=== PATIENT | female | born 1945 | race Caucasian/White ===

== ENCOUNTER → 2017-12-21 | Outpatient (CLI) | payer MEDICARE ==
--- NOTE | 2017-12-21 16:38 | BD ---
EXAMINATION TYPE: Axial Bone Density DATE OF EXAM: 12/21/2017 COMPARISON: NONE CLINICAL HISTORY: 72-year-old female postmenopausal screening for osteoporosis Height: 5 FT 5 IN Weight: 146 FRAX RISK QUESTIONS: Family History (Parent hip fracture): YES History of Fracture in Adulthood: YES Secondary Osteoporosis: RISK FACTORS HISTORY OF: Family History of Osteoporosis: YES Active: YES Postmenopausal woman: AGE 48 MEDICATIONS: Thyroid Medications: YES Which medication: LEVOTHYROXINE How Long: SINCE AGE 25 Additional Medications: ASPIRIN,LEVOTHYROXINE Additional History: EXAM MEASUREMENTS: Bone mineral densitometry was performed using the [employer] System. Bone mineral density as measured about the Lumbar spine is: ----- L1-L4(G/cm2): 1.220 T Score Values are as follows: ----- L2: -0.2 ----- L3: 0.8 ----- L4: 1.1 ----- L1-L4: 0.3 Bone mineral density has: INCREASED 0.6 % since study of: 2015 Bone mineral density about the R hip (g/cm2): 0.835 Bone mineral density about the L hip (g/cm2): 0.774 T Score values are as follows: -----R Neck: -1.5 -----L Neck: -1.9 -----R Total: -0.4 -----L Total: -0.3 Bone mineral density has: INCREASED 0.5 % since study of: 2015 IMPRESSION: Osteopenia (T Score between -2.5 and -1). There is slightly increased risk of fracture and the patient may be considered for treatment. Re-Screen 2-5 years. NOTE: T-SCORE=SD OF THE YOUNG ADULT MEAN.
== END | disposition home or self-care (01) ==
LOC: RADBDWWP 15:02
PROVIDERS: ATTEND Family Medicine
DX: M85.80 Other specified disorders of bone density and structure, unspecified site (principal)
CPT/HCPCS: 77080

== ENCOUNTER → 2018-02-20 | Outpatient (CLI) | payer MEDICARE ==
[2018-02-20 09:17] LABS: Uric Acid 7.4 mg/dL (3.7-7.4)
[2018-02-20 09:32] LABS: T4, Free (Free Thyroxine) 1.83 ng/dL (0.78-2.19)
== END | disposition home or self-care (01) ==
LOC: LABWHC1 08:26
PROVIDERS: ATTEND Family Medicine
DX: Z00.00 Encounter for general adult medical examination without abnormal findings (principal); E78.5 Hyperlipidemia, unspecified; E03.9 Hypothyroidism, unspecified; R60.9 Edema, unspecified; Z79.899 Other long term (current) drug therapy
CPT/HCPCS: 36415; 80061; 82306; 84439; 84443; 84481; 84550

== ENCOUNTER → 2018-03-10 | Outpatient (CLI) | payer MEDICARE ==
--- NOTE | 2018-03-10 15:48 | XR ---
EXAMINATION TYPE: XR cervical spine comp DATE OF EXAM: 03/10/2018 COMPARISON: None HISTORY: Cervalgia TECHNIQUE: Five-view cervical spine FINDINGS: Mild foraminal narrowing is in the mid to upper cervical spine. Vertebral body alignment is normal. Anterior vertebral body spurring is present C6 mild disc space narrowing is present C5-6. Po sterior spinal lamellar line is intact. Odontoid is limitation with overlying occiput. IMPRESSION: 1. Mild foraminal narrowing within the cervical spine. MRI can be utilized if additional evaluation would be of benefit. 2. Mild degenerative disc changes C5-6
== END | disposition home or self-care (01) ==
LOC: RADXRMAIN 10:45
PROVIDERS: ATTEND Family Medicine
DX: M99.71 Connective tissue and disc stenosis of intervertebral foramina of cervical region (principal); M47.812 Spondylosis without myelopathy or radiculopathy, cervical region
CPT/HCPCS: 72050

== ENCOUNTER 2019-01-04 12:17 | Inpatient (IN) | payer MEDICARE ==
[2019-01-04] MEDS ORDERED: SODIUM CHLORIDE 0.9% 1,000 ML IV STA ×2 (14:01)
--- NOTE | 2019-01-04 14:14 | ED ---
Neuro HPI - General Source: patient, RN notes reviewed, old records reviewed Mode of arrival: wheelchair Limitations: no limitations - History of Present Illness Is the patient presenting with stroke symptoms?: Yes Last Known Well Date: 01/04/19 Last Known Well Time: 08:30 <Grecia Fowler - Last Filed: 01/04/19 16:31> <Jigar Jaimes - Last Filed: 01/04/19 16:44> - General Chief Complaint: Neuro Symptoms/Deficit Stated Complaint: facial swelling/numbness-sent by Dr. Martino Seen by Provider: 01/04/19 13:52 - History of Present Illness Initial Comments: Patient is a 73-year-old female who presents emergency Department today with left-sided facial droop, left-sided facial numbness and tingling, also complains of left eye visual disturbance. She reports she's had history of TIAs in the past. She reports she is on a daily aspirin. She did take 2 aspirin today she stated she had mild headache. Patient states that she's had some nausea, no significant vomiting. (Grecia Fowler) - Related Data Home Medications: Home Medications Medication Instructions Recorded Confirmed Aspirin EC [Ecotrin] 650 mg PO DAILY PRN 05/08/16 01/04/19 Levothyroxine Sodium [Synthroid] 88 mcg PO DAILY 01/04/19 01/04/19 Allergies/Adverse Reactions: Allergies Allergy/AdvReac Type Severity Reaction Status Date / Time ampicillin Allergy Swelling Verified 01/04/19 13:13 cephalexin monohydrate Allergy Rash/Hives Verified 01/04/19 13:13 [From Keflex] ciprofloxacin [From Cipro] Allergy Swelling Verified 01/04/19 13:13 Review of Systems ROS Other: All systems not noted in ROS Statement are negative. <Grecia Fowler - Last Filed: 01/04/19 16:31> ROS Other: All systems not noted in ROS Statement are negative. <Jigar Jaimes - Last Filed: 01/04/19 16:44> ROS Statement: Those systems with pertinent positive or pertinent negative responses have been documented in the HPI. General Exam Limitations: no limitations General appearance: alert, in no apparent distress Head exam: Present: atraumatic, normocephalic, normal inspection Eye exam: Present: normal appearance ENT exam: Present: normal exam, mucous membranes moist Neck exam: Present: normal inspection, other (left facial droop, sparing forehead). Absent: tenderness, meningismus, lymphadenopathy Respiratory exam: Present: normal lung sounds bilaterally. Absent: respiratory distress, wheezes, rales, rhonchi, stridor Cardiovascular Exam: Present: regular rate, normal rhythm, normal heart sounds. Absent: systolic murmur, diastolic murmur, rubs, gallop, clicks GI/Abdominal exam: Present: soft, normal bowel sounds. Absent: distended, tenderness, guarding, rebound, rigid Extremities exam: Present: normal inspection, full ROM, normal capillary refill. Absent: tenderness, pedal edema, joint swelling, calf tenderness Back exam: Present: normal inspection Neurological exam: Present: alert, oriented X3 Expanded Patient oriented to: Present: person, place, time Speech: Present: fluid speech Cranial nerves: Facial Sensation: Abnormal Left ( reports diminished sensation over the left side of her face.), Facial Palsy with Forehead Movement: Abnormal Left Cerebellar function: Finger to Nose: Normal Upper motor neuron: Pronator Drift: Normal Sensory exam: Upper Extremity Light Touch: Abnormal Left, Lower Extremity Light Touch: Abnormal Left Motor strength exam: RUE: 5, LUE: 5, RLE: 5, LLE: 5 Eye Response: (4) open spontaneously Motor Response: (6) obeys commands Verbal Response: (5) oriented Ethel Total: 15 Psychiatric exam: Present: normal affect, normal mood Skin exam: Present: warm <Grecia Fowler - Last Filed: 01/04/19 16:31> - General Exam Comments Initial Comments: 73-year-old female. Alert and oriented 3. (Grecia Fowler) Stroke [facility] - Lab Data Result diagrams: 01/04/19 13:36 01/04/19 13:36 - NIH Stroke Scale 1a. Level of Consciousness: (0) alert 1b. LOC Questions: (1) answers 1 question correctly 1c. LOC Commands: (0) performs tasks correctly 2. Best Gaze: (0) normal 3. Visual: (1) partial hemianopia 4. Facial Palsy: (2) partial paralysis 5a. Motor Arm Left: (0) no drift 5b. Motor Arm Right: (0) no drift 6a. Motor Leg Left: (0) no drift 6b. Motor Leg Right: (0) no drift 7. Limb Ataxia: (0) absent 8. Sensory: (1) mild/moderate sensory loss 9. Best Language: (0) no aphasia 10. Dysarthria: (0) normal 11. Extinction/Inattention: (0) no abnormality - Thrombolytic Inclusion/Exclusion Thrombolytic Exclusion Criteria: Symptom Onset > 3 Hours - Radiology Data Radiology results: report reviewed - EKG Data -: EKG Interpreted by Ia EKG shows normal: sinus rhythm Rate: normal <Grecia Fowler - Last Filed: 01/04/19 16:31> - Lab Data Result diagrams: 01/04/19 13:36 01/04/19 13:36 <Jigar Jaimes - Last Filed: 01/04/19 16:44> - Lab Data Lab Results 01/04/19 01/04/19 01/04/19 Range/Units 13:36 13:36 13:36 WBC 5.5 (3.8-10.6) k/uL RBC 4.65 (3.80-5.40) m/uL Hgb 13.9 (11.4-16.0) gm/dL Hct 41.9 (34.0-46.0) % MCV 90.1 (80.0-100.0) fL MCH 29.8 (25.0-35.0) pg MCHC 33.1 (31.0-37.0) g/dL RDW 13.2 (11.5-15.5) % Plt Count 264 (150-450) k/uL Neutrophils % 61 % Lymphocytes % 28 % Monocytes % 7 % Eosinophils % 2 % Basophils % 0 % Neutrophils # 3.4 (1.3-7.7) k/uL Lymphocytes # 1.5 (1.0-4.8) k/uL Monocytes # 0.4 (0-1.0) k/uL Eosinophils # 0.1 (0-0.7) k/uL Basophils # 0.0 (0-0.2) k/uL PT 9.8 (9.0-12.0) sec INR 0.9 (<1.2) APTT 24.9 (22.0-30.0) sec Sodium 141 (137-145) mmol/L Potassium 4.5 (3.5-5.1) mmol/L Chloride 109 H (98-107) mmol/L Carbon Dioxide 24 (22-30) mmol/L Anion Gap 8 mmol/L BUN 17 (7-17) mg/dL Creatinine 0.84 (0.52-1.04) mg/dL Est GFR (CKD-EPI)AfAm 79 (>60 ml/min/1.73 sqM) Est GFR (CKD-EPI)NonAf 68 (>60 ml/min/1.73 sqM) Glucose 87 (74-99) mg/dL Calcium 9.5 (8.4-10.2) mg/dL Total Bilirubin 0.4 (0.2-1.3) mg/dL AST 37 H (14-36) U/L ALT 28 (9-52) U/L Alkaline Phosphatase 65 (38-126) U/L Troponin I (0.000-0.034) ng/mL Total Protein 7.6 (6.3-8.2) g/dL Albumin 4.1 (3.5-5.0) g/dL 01/04/19 Range/Units 13:36 WBC (3.8-10.6) k/uL RBC (3.80-5.40) m/uL Hgb (11.4-16.0) gm/dL Hct (34.0-46.0) % MCV (80.0-100.0) fL MCH (25.0-35.0) pg MCHC (31.0-37.0) g/dL RDW (11.5-15.5) % Plt Count (150-450) k/uL Neutrophils % % Lymphocytes % % Monocytes % % Eosinophils % % Basophils % % Neutrophils # (1.3-7.7) k/uL Lymphocytes # (1.0-4.8) k/uL Monocytes # (0-1.0) k/uL Eosinophils # (0-0.7) k/uL Basophils # (0-0.2) k/uL PT (9.0-12.0) sec INR (<1.2) APTT (22.0-30.0) sec Sodium (137-145) mmol/L Potassium (3.5-5.1) mmol/L Chloride (98-107) mmol/L Carbon Dioxide (22-30) mmol/L Anion Gap mmol/L BUN (7-17) mg/dL Creatinine (0.52-1.04) mg/dL Est GFR (CKD-EPI)AfAm (>60 ml/min/1.73 sqM) Est GFR (CKD-EPI)NonAf (>60 ml/min/1.73 sqM) Glucose (74-99) mg/dL Calcium (8.4-10.2) mg/dL Total Bilirubin (0.2-1.3) mg/dL AST (14-36) U/L ALT (9-52) U/L Alkaline Phosphatase (38-126) U/L Troponin I <0.012 (0.000-0.034) ng/mL Total Protein (6.3-8.2) g/dL Albumin (3.5-5.0) g/dL - Medical Decision Making 73-year-old female presents emergency department today with left-sided facial droop, left sided facial tingling, arm numbness sensation in leg numbness sensation starting at 8:30 in the morning. Patient went to her PCPs office and was sent and to emergency department for further evaluation. She denies a significant headache or head trauma. She's had history of TIAs in the past. Travon thompson does have some partial left sided facial paralysis at this time. She does relate she started he had aspirin. Could stroke was initiated, Dr. Childs evaluated the Patient and reviewed imaging. Patient is on TPA candidate due to the length of time of her symptoms. Patient case discussed with Dr. Jaimes whom discussed the case with [facility]. Patient will be admitted at this time for acute stroke, consults to neurology. All questions were answered return parameters were discussed. (Grecia Fowler) - Radiology Data Chest x-ray is negative for any acute cardiac process. CT of brain is negative for any acute cranial hemorrhage or midline shift. There is diffuse age-related syrup brought in chronic small vessel ischemic change noted. CT [place] head and neck, shows no evidence of vascular dissection, aneurysm outpouching, focal occlusion or significant stenosis of the major vasculature of the digit and neck. Patient diminished to the anatomic variant of origin of the left posterior cerebral artery and a very diminutive possibility of stenotic accessory branch from the basilar artery appearing to connect or at le ast extending towards the diminutive posterior cerebral artery. Left [employer] stenosis is possible versus congenital variation. (Grecia Fowler) 01/04/19 14:46 EKG performed shows a sinus of the normal EKG. Ventricular rate of 70 bpm period. It was 176 no seconds petrous ration 72 ms. QT QTc is 410/442 ms. (Grecia Fowler) Past Medical History Past Medical History: CVA/TIA Additional Past Medical History / Comment(s): migraines, TIA-2010, "brown spots on skin" back pain from fall. History of Any Multi-Drug Resistant Organisms: None Reported Additional Past Surgical History / Comment(s): colonoscopy, D &C's Past Anesthesia/Blood Transfusion Reactions: Motion Sickness Past Psychological History: No Psychological Hx Reported Smoking Status: Never smoker Past Alcohol Use History: Rare Past Drug Use History: None Reported - Past Family History Father Family Medical History: Cancer <Grecia Fowler - Last Filed: 01/04/19 16:31> Course <Grecia Fowler - Last Filed: 01/04/19 16:31> <Jigar Jaimes - Last Filed: 01/04/19 16:44> Vital Signs 01/04/19 01/04/19 01/04/19 12:57 13:46 14:00 Temperature 98 F Pulse Rate 79 70 Respiratory 18 21 16 Rate Blood Pressure 140/78 144/79 O2 Sat by Pulse 99 95 97 Oximetry 01/04/19 01/04/19 01/04/19 14:15 14:36 14:45 Temperature Pulse Rate 70 71 Respiratory 16 26 H 17 Rate Blood Pressure 142/87 157/82 O2 Sat by Pulse 97 96 97 Oximetry 01/04/19 15:00 Temperature Pulse Rate 67 Respiratory 17 Rate Blood Pressure 139/78 O2 Sat by Pulse 98 Oximetry - Reevaluation(s) Reevaluation #1: 01/04/19 14:30 Patient fracture at 12:30, 4 hours after symptoms started. She is out of the window for TPA candidate. (Grecia Fowler) Reevaluation #2: 01/04/19 16:20 Asians case discussed with Dr. Childs, examined the Patient. Stroke robot, he contacted the nurse stated Patient is not a TPA candidate. He reviewed the imaging studies, Patient was admitted to our hospital with her neurologist managing the case isinterventional that that will be take taken place at this time. (Grecia Fowler) Reevaluation #3: 01/04/19 16:44 Patient was reevaluated and reexamined by myself, Dr. Jaimes. I do agree with PA findings. This includes diagnostic interpretations and treatment plan. Patient resting comfortably in bed. Patient does have left-sided facial weakness that does not appear to involve the forehead dry. No other signs of weakness. Patient and family updated on results and plan. Case was discussed in detail w adry Carranza, covering for Dr. Wen, who will admit. (Jigar Jaimes) Disposition Is patient prescribed a controlled substance at d/c from ED?: No Time of Disposition: 16:35 <Grecia Fowler - Last Filed: 01/04/19 16:31> <Jigar Jaimes - Last Filed: 01/04/19 16:44> Clinical Impression: Stroke Disposition: ADMITTED IP TO THIS HOSP Condition: Good Referrals: Geena Wen MD [Primary Care Provider] - 1-2 days
[2019-01-04 14:23] LABS: Basophils % (A) 0 %; Eosinophils # (A) 0.1 k/uL (0-0.7); Eosinophils % (A) 2 %; HCT 41.9 % (34.0-46.0); HGB 13.9 gm/dL (11.4-16.0); Lymphocytes # (A) 1.5 k/uL (1.0-4.8); Lymphocytes % (A) 28 %; MCH 29.8 pg (25.0-35.0); MCHC 33.1 g/dL (31.0-37.0); MCV 90.1 fL (80.0-100.0); Mean Platelet Volume 7.4; Monocytes # (A) 0.4 k/uL (0-1.0); Monocytes % (A) 7 %; Neutrophils # (A) 3.4 k/uL (1.3-7.7); Neutrophils % (A) 61 %; Platelet Count 264 k/uL (150-450); RBC 4.65 m/uL (3.80-5.40); RDW 13.2 % (11.5-15.5); WBC 5.5 k/uL (3.8-10.6)
[2019-01-04 14:30] LABS: Albumin 4.1 g/dL (3.5-5.0); Calcium 9.5 mg/dL (8.4-10.2); INR 0.9 (<1.2); Partial Thromboplastin Time 24.9 sec (22.0-30.0); Potassium 4.5 mmol/L (3.5-5.1); Prothrombin Time 9.8 sec (9.0-12.0); Total Bilirubin 0.4 mg/dL (0.2-1.3); Total Protein 7.6 g/dL (6.3-8.2)
--- NOTE | 2019-01-04 14:40 | XR ---
EXAMINATION TYPE: XR chest 2V DATE OF EXAM: 01/04/2019 COMPARISON: 05/08/2016 INDICATION: Altered mental status TECHNIQUE: Frontal and lateral views of the chest are obtained. FINDINGS: The heart size is normal. The pulmonary vasculature is normal. The lungs are clear. IMPRESSION: 1. No acute pulmonary process.
--- NOTE | 2019-01-04 14:42 | CT ---
EXAMINATION TYPE: CT brain wo con for TPA DATE OF EXAM: 01/04/2019 COMPARISON: 05/08/2016 HISTORY: posterior headache and facial numbness CT DLP: 890.2 mGycm Automated exposure control for dose reduction was used. TECHNIQUE: CT scan of the head is performed without contrast. FINDINGS: There is no acute intracranial hemorrhage or midline shift identified. There is diffuse v entricular and sulcal prominence consistent with diffuse age-related cerebral atrophy. There are 2 ol d clearing trace of the left cerebellar hemisphere unchanged from 2016. There is low-attenuation in the periventricular white matter consistent with chronic small vessel ischemic change. Atherosclerosi s of the intracranial vasculature is noted. Globes are intact and the visualized sinuses are clear. IMPRESSION: No acute intracranial hemorrhage or midline shift. There is diffuse age-related cerebra l atrophy and chronic small vessel ischemic change noted.
--- NOTE | 2019-01-04 15:31 | CT ---
EXAMINATION TYPE: CT angio head neck DATE OF EXAM: 01/04/2019 HISTORY: Posterior headache, facial numbness COMPARISON: CT brain of the same date. CT DLP: 273.2 mGycm. Automated Exposure Control for Dose Reduction was Utilized. TECHNIQUE: CTA scan of the neck is performed with IV Contrast, patient injected with 50 mL of Isovue 370, axial images are obtained, coronal and sagittal reformatted images are reviewed. Three-D recons tructed images are created on an independent workstation and reviewed. FINDINGS: Carotid/Vascular Structures: The common carotid arteries appear patent without hemodynamically signif icant stenosis. The carotid bulbs are also patent without hemodynamically significant stenosis. There is mild calcific atheromatous plaquing of the proximal left internal carotid artery. The vertebral a rteries are patent with minimal multifocal nonhemodynamically significant stenosis on the left. Verte bral arteries are codominant. Basilar artery is patent. Atherosclerosis is seen of the cavernous and supraclinoid portions of the internal carotid arteries. 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 There also appears to be origin of the left posterior cerebral artery that is slightly diminutive in caliber with very diminutive accessory artery emanating from the basilar artery and image 15 towards the origin of the left MANAGER [employer]. No ev idence of intracranial aneurysm is seen. [place] is only questionably intact given the findi ngs of the left circulation. Right posterior to indicating artery is seen. No sclerosis evidence of a rterial venous malformation. Other: There is minimal biapical pleural parenchymal scarring. Moderate degenerative disc disease of the cervical spine is seen. There is grade 1 anterolisthesis of C4 on C5 and multilevel intervertebra l disc space narrowing with uncovertebral hypertrophy, facet arthropathy and anterior osteophytes. Ma lalignment is likely on a degenerative basis. Visualized paranasal sinuses display only mild mucosal thickening of the maxillary sinuses and scant mucosal thickening in the ethmoid sinuses. IMPRESSION: 1. No evidence of vascular dissection, aneurysmal outpouching, focal occlusion, or significant stenos is of the major vasculature of the neck. 2. Diminutive anatomic variant origin of the left posterior cerebral artery and very diminutive possibly stenotic accessory branch from the basilar artery appearing to connect or at least extendin g towards the diminutive left posterior cerebral artery. Left MA[employer]GER [employer] stenosis is possible versus congeni vinod variation.
--- NOTE | 2019-01-04 17:21 | P.HPIM ---
History of Present Illness 68-year-old pleasant female with history of migraine came in with the complaints of left-sided facial numbness tingling along with left-sided facial droop she still has some residual facial droop and the numbness in the left side of the scalp. Along with tingling and numbness in the left side of the body along with weakness on the left side of the body all of these symptoms resolved in an hour patient denied any speech abnormalities patient initially thought. This is secondary to her migraine although her symptoms progressed to involve the whole left side of the body. Patient also has vague symptoms of blurred vision, most ly double vision, patient had a CAT scan which did not show significant abnormality patient had a CT angios the head and neck which was read as an abnormality in the left posterior septal artery may be a congenital variation or a blockage in the posterior circulation although his symptomatology is not due to her posterior circulation. Patient had TIAs in the past for which she patient is taking aspirin 325 mg at home.. Patient denied any fever chills seizure-like activity loss of bowel or bladder incontinence has a mild left- sided headache earlier today. Review of Systems REVIEW OF SYSTEMS: CONSTITUTIONAL: No fever, no malaise, no fatigue. HEENT: No recent visual problems or hearing problems. Denied any sore throat. CARDIOVASCULAR: No chest pain, orthopnea, PND, no palpitations, no syncope. PULMONARY: No shortness of breath, no cough, no hemoptysis. GASTROINTESTINAL: No diarrhea, no nausea, no vomiting, no abdominal pain. NEUROLOGICAL: As mentioned in HPI HEMATOLOGICAL: Denies any bleeding or petechiae. GENITOURINARY: Denies any burning micturition, frequency, or urgency. MUSCULOSKELETAL/RHEUMATOLOGICAL: Denies any joint pain, swelling, or any muscle pain. ENDOCRINE: Denies any polyuria or polydipsia. The rest of the 14-point review of systems is negative. Past Medical History Past Medical History: CVA/TIA Additional Past Medical History / Comment(s): migraines, TIA-2010, "brown spots on skin" back pain from fall. History of Any Multi-Drug Resistant Organisms: None Reported Additional Past Surgical History / Comment(s): colonoscopy, D &C's Past Anesthesia/Blood Transfusion Reactions: Motion Sickness Past Psychological History: No Psychological Hx Reported Smoking Status: Never smoker Past Alcohol Use History: Rare Past Drug Use History: None Reported - Past Family History Father Family Medical History: Cancer Medications and Allergies Home Medications Medication Instructions Recorded Confirmed Type Aspirin EC [Ecotrin] 650 mg PO DAILY PRN 05/08/16 01/04/19 History Levothyroxine Sodium [Synthroid] 88 mcg PO DAILY 01/04/19 01/04/19 History Allergies Allergy/AdvReac Type Severity Reaction Status Date / Time ampicillin Allergy Swelling Verified 01/04/19 13:13 cephalexin monohydrate Allergy Rash/Hives Verified 01/04/19 13:13 [From Keflex] ciprofloxacin [From Cipro] Allergy Swelling Verified 01/04/19 13:13 Physical Exam Vitals: Vital Signs Temp Pulse Resp BP Pulse Ox 01/04/19 15:00 67 17 139/78 98 01/04/19 14:45 71 17 157/82 97 01/04/19 14:36 26 H 96 01/04/19 14:15 70 16 142/87 97 01/04/19 14:00 70 16 144/79 97 01/04/19 13:46 21 95 01/04/19 12:57 98 F 79 18 140/78 99 Intake and Output 01/04/19 01/04/19 01/04/19 06:59 14:59 22:59 Other: Weight 63.503 kg PHYSICAL EXAMINATION: GENERAL: The patient is alert and oriented x3, not in any acute distress. Well developed, well nourished. HEENT: Pupils are round and equally reacting to light. EOMI. No scleral icterus. No conjunctival pallor. Normocephalic, atraumatic. No pharyngeal erythema. No thyromegaly. CARDIOVASCULAR: S1 and S2 present. No murmurs, rubs, or gallops. PULMONARY: Chest is clear to auscultation, no wheezing or crackles. ABDOMEN: Soft, nontender, nondistended, normoactive bowel sounds. No palpable organomegaly. MUSCULOSKELETAL: No joint swelling or deformity. EXTREMITIES: No cyanosis, clubbing, or pedal edema. NEUROLOGICAL: Gross neurological examination did not reveal any focal deficits except for facial weakness in the leg left-sided minimal. SKIN: No rashes. Results CBC & Chem 7: 01/04/19 13:36 01/04/19 13:36 Labs: Abnormal Lab Results - Last 24 Hours (Table) 01/04/19 Range/Units 13:36 Chloride 109 H (98-107) mmol/L AST 37 H (14-36) U/L Assessment and Plan Plan: -Possible transient ischemic attack involving right middle cerebral artery territory perforating branches that supply internal capsule. We will obtain lipid panel for tomorrow morning patient was started on a statin continue with the aspirin neurology will evaluate the patient patient may need MRI which did not show anything as patient had a TIA. Echocardiogram will be obtained as well. Patient does not have any history of atrial fibrillation, never smoked. She symptoms completely resolved will not require speech therapy, occupational therapy or physical therapy evaluation -I would or doesn't continue with levothyroxine -History of migraine Due to prophylaxis: Early ambulation
[2019-01-04] MEDS: FAMOTIDINE 20 MG/2 ML VIAL IV SCH (20:15)
[2019-01-04] MEDS ORDERED: ATORVASTATIN 40 MG TAB PO SCH (21:00)
[2019-01-04 21:15] VITALS: RESP 18
[2019-01-04] MEDS ORDERED: ASPIRIN 325 MG TAB PO STA (23:46)
[2019-01-05] MEDS ORDERED: LEVOTHYROXINE 88 MCG TAB PO SCH (06:30)
[2019-01-05 06:31] LABS: Cholesterol 180 mg/dL (<200); HDL Cholesterol 37 mg/dL (40-60); LDL Cholesterol,Calculated 104 mg/dL (0-99); Triglycerides 195 mg/dL (<150)
[2019-01-05] MEDS: FAMOTIDINE 20 MG/2 ML VIAL IV SCH (08:16)
[2019-01-05] MEDS ORDERED: ASPIRIN 325 MG TAB PO SCH (09:00)
[2019-01-05 11:37] VITALS: TEMP 97.9
--- NOTE | 2019-01-05 13:17 | ECHOF ---
Referral Reason:cva MEASUREMENTS -------- HEIGHT: 167.6 cm WEIGHT: 65.3 kg BP: 119/70 IVSd: 0.9 cm (0.6 - 1.1) LVIDd: 2.4 cm (3.9 - 5.3) LVPWd: 0.9 cm (0.6 - 1.1) IVSs: 1.4 cm LVIDs: 1.7 cm LVPWs: 0.9 cm LAESV Index (A-L): 13.18 ml/m Ao Diam: 2.8 cm (2.0 - 3.7) AV Cusp: 1.9 cm (1.5 - 2.6) LA Diam: 3.0 cm (2.7 - 3.8) MV EXCURSION: 18.395 mm (> 18.000) MV EF SLOPE: 92 mm/s (70 - 150) EPSS: 2.3 cm MV E Shivam: 0.76 m/s MV DecT: 169 ms MV A Shivam: 1.18 m/s MV E/A Ratio: 0.64 RAP: 5.00 mmHg RVSP: 26.51 mmHg FINDINGS -------- Sinus rhythm. This was a technically good study. The left ventricular size is normal. Left ventricular wall thickness is normal. Overall left vent ricular systolic function is normal with, an EF between 55 - 60 %. The right ventricle is normal in size. The left atrial size is normal. The right atrial size is normal. Thin aneurysmal Interatrial septum. The aortic valve is trileaflet and appears structurally normal. The mitral valve leaflets are mildly thickened. Mild mitral regurgitation is present. Mild tricuspid regurgitation present. The right ventricular systolic pressure, as measured by Doppl er, is 26.51mmHg. There is no pulmonic regurgitation present. The aortic root size is normal. Normal inferior vena cava with normal inspiratory collapse consistent with estimated right atrial pre ssure of 5 mmHg. There is no pericardial effusion. CONCLUSIONS -------- 1. Sinus rhythm. 2. This was a technically good study. 3. The left ventricular size is normal. 4. Left ventricular wall thickness is normal. 5. Overall left ventricular systolic function is normal with, an EF between 55 - 60 %. 6. The right ventricle is normal in size. 7. The left atrial size is normal. 8. The right atrial size is normal. 9. Thin aneurysmal Interatrial septum. 10. The aortic valve is trileaflet and appears structurally normal. 11. The mitral valve leaflets are mildly thickened. 12. Mild mitral regurgitation is present. 13. Mild tricuspid regurgitation present. 14. The right ventricular systolic pressure, as measured by Doppler, is 26.51mmHg. 15. There is no pulmonic regurgitation present. 16. The aortic root size is normal. 17. Normal inferior vena cava with normal inspiratory collapse consistent with estimated right atrial pressure of 5 mmHg. 18. There is no pericardial effusion. [employer]: Kira Win RDCS
--- NOTE | 2019-01-05 14:29 | P.DS ---
Providers Date of admission: 01/04/19 16:45 Attending physician: Willam Carranza Consults: 01/05/19 09:41 Consult Physician Stat Consulting Provider: Rach Shankar Reason/Comments: Acute Stroke Do you want consulting provider notified?: Yes Primary care physician: Geena Wen [facility] Course: 68-year-old pleasant female with history of migraine came in with the complaints of left-sided facial numbness tingling along with left-sided facial droop she still has some residual facial droop and the numbness in the left side of the scalp. Along with tingling and numbness in the left side of the body along with weakness on the left side of the body all of these symptoms resolved in an hour patient denied any speech abnormalities patient initially thought. This is secondary to her migraine although her symptoms progressed to involve the whole left side of the body. Patient also has vague symptoms of blurred vision, mostly double vision, patient had a CAT scan which did not show significant abnormality patient had a CT angios the head and neck which was read as an abnormality in the left posterior septal artery may be a congenital variation or a blockage in the posterior circulation although his symptomatology is not due to her posterior circulation. Patient had TIAs in the past for which she patient is taking aspirin 325 mg at home.. Patient denied any fever chills seizure-like activity loss of bowel or bladder incontinence has a mild left- sided headache earlier today. 01/05/2019 Patient will undergo an MRI. Discussed with neurology after discussion we decided that patient should go in and get an MRI done if that's negative and after Neurology evaluation patient will be discharged home after neurology makes patient regarding antiplatelet therapy, patient will be discharged on Lipitor 40 mg LDL is 104. Patient echo cardiac murmur essentially within normal limits. All Neuro deficits completely resolved PHYSICAL EXAMINATION: GENERAL: The patient is alert and oriented x3, not in any acute distress. Well developed, well nourished. HEENT: Pupils are round and equally reacting to light. EOMI. No scleral icterus. No conjunctival pallor. Normocephalic, atraumatic. No pharyngeal erythema. No thyromegaly. CARDIOVASCULAR: S1 and S2 present. No murmurs, rubs, or gallops. PULMONARY: Chest is clear to auscultation, no wheezing or crackles. ABDOMEN: Soft, nontender, nondistended, normoactive bowel sounds. No palpable organomegaly. MUSCULOSKELETAL: No joint swelling or deformity. EXTREMITIES: No cyanosis, clubbing, or pedal edema. NEUROLOGICAL: Gross neurological examination did not reveal any focal deficits. SKIN: No rashes. For other chronic medical problems has position causes please refer to my HPI. Patient probably has a transient ischemic attack Patient Condition at Discharge: Good Plan - Discharge Summary New Discharge Prescriptions: New Aspirin 325 mg PO DAILY tab Atorvastatin [Lipitor] 40 mg PO HS #30 tab Continue Levothyroxine Sodium [Synthroid] 88 mcg PO DAILY Discontinued Aspirin EC [Ecotrin] 650 mg PO DAILY PRN PRN Reason: Pain Discharge Medication List Levothyroxine Sodium [Synthroid] 88 mcg PO DAILY 01/04/19 [History] Aspirin 325 mg PO DAILY tab 01/05/19 [Rx] Atorvastatin [Lipitor] 40 mg PO HS #30 tab 01/05/19 [Rx] Follow up Appointment(s)/Referral(s): Geena Wen MD [Primary Care Provider] - 1-2 days Activity/Diet/Wound Care/Special Instructions: can be discharged after MRI
--- NOTE | 2019-01-05 14:53 | MR ---
MR brain without contrast HISTORY: Left facial and arm numbness Multiplanar multisequence imaging through the brain Correlation CT brain 01/04/2018 There is no restricted diffusion to suggest subacute ischemia. Cortical atrophy is likely age-related . There is no hemorrhage or hydrocephalus. Increased signal on T2 and inversion over sequences within the periventricular, subcortical, juxtacortical, pericallosal white matter. The corpus callosum, pit uitary, cervical medullary junction, cerebellopontine angles are unremarkable. Inflammatory change pr esent in the right maxillary sinus, ethmoid air cells. The orbits show symmetric appearance. There ar e normal vascular flow voids. Mild inflammatory change present in the mastoid air cells, temporal bon es. IMPRESSION: Sinus disease, mild inflammatory change in the temporal bones, mastoid air cells. Age-rel ated changes of atrophy and probable chronic small vessel ischemia.
--- NOTE | 2019-01-05 17:46 | P.CNNES ---
History of Present Illness Consult date: 01/05/19 Reason for Consult: Acute stroke History of Present Illness: Patient is a 73-year-old female who has long-standing history of migraines headache. Patient get migraines with aura, with tunnel vision, left hand numbness that extends to the shoulder than left side of the face. After these neurological symptoms she gets a headache and she usually takes 3 aspirins and it stops the headache and half an hour. Patient also claims that she has his tory of TIAs in the past, in which she has per cc he has as a start, but also has some "weird feeling in the vision", cognitive processing slowing. She came to the hospital for similar event. Yesterday morning at 8:30 she woke up and felt her left lip was swollen. Later she felt swelling of the left side of the cheek and went to the eye. Her vision felt weird, although it was not double vision, but it "almost looked like double". At around 9:30 AM, she felt the numbness involving the left hand in the medial 2 digits, almost like her migraine symptoms. Then these paresthesias extended to the left arm all the way to the shoulder, then the left leg. She had difficulty with mental processing. She came to the ER. She was not a candidate for TPA, as she woke up with a neurological symptoms. Patient underwent CTA of the head and neck, which revealed no evidence of vascular dissection, aneurysms, occlusions or significant stenosis of major vasculature of the neck. Diminutive anatomy variant origin of the left [employer] and very diminutive possibly stenotic accessory branch from the basilar artery appearing to connect or at least extending toward the diminutive left [employer]. Left [employer] stenosis is possible versus congenital variation. Computed tomography scan of head showed no acute intracranial hemorrhage or midline shift. There is diffuse age-related cerebral atrophy and chronic small vessel ischemic change. Patient had a 2-D echo, which revealed left radicular size is normal. EF 55-60%. Left atrial size is normal. Thin aneurysmal interatrial septum. Mild mitral regurgitation. Patient had an MRI of the brain performed today without contrast, which revealed sinus disease, mild inflammatory change in the temporal bones, mastoid air cells. Age-related changes of atrophy and possible chronic small vessel ischemia. Patient states that she had had TIAs in 2009 and the 2016. At one time she was placed on Plavix, but produces intense headaches that she had to stop. She was then placed on Aggrenox which she took for a year and then the headache started coming back, and her lips got swollen. She then went back on aspirin 325 mg daily. She usually takes aspirin regularly, although she went to [place] for a week and was not taking her aspirin there. She returned from [place] about a week ago. Patient denies any tobacco use, alcohol. Denies hypertension or diabetes. Patient does not take any HRT. Patient states her symptoms have resolved as of this morning. Review of Systems As per HPI. Denies any focal symptoms at this time. Denies any headache problem with the vision. 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, DIVERTICULITSIS, HEMORROIDS History of Any Multi-Drug Resistant Organisms: None Reported Additional Past Surgical History / Comment(s): colonoscopy, D &C's Past Anesthesia/Blood Transfusion Reactions: Motion Sickness Past Psychological History: No Psychological Hx Reported Smoking Status: Never smoker Past Alcohol Use History: Rare Past Drug Use History: None Reported - Past Family History Father Family Medical History: Cancer Medications and Allergies Home Medications Medication Instructions Recorded Confirmed Type Levothyroxine Sodium [Synthroid] 88 mcg PO DAILY 01/04/19 01/04/19 History Aspirin 325 mg PO DAILY tab 01/05/19 Rx Atorvastatin [Lipitor] 40 mg PO HS #30 tab 01/05/19 Rx Allergies Allergy/AdvReac Type Severity Reaction Status Date / Time ampicillin Allergy Swelling Verified 01/04/19 13:13 cephalexin monohydrate Allergy Rash/Hives Verified 01/04/19 13:13 [From Keflex] ciprofloxacin [From Cipro] Allergy Swelling Verified 01/04/19 13:13 Physical Examination - Vital Signs Vital Signs: Vital Signs Temp Pulse Resp BP Pulse Ox 01/05/19 15:09 74 18 127/68 96 01/05/19 11:34 97.9 F 77 18 133/78 97 01/05/19 08:08 98 F 78 18 121/65 97 01/05/19 03:25 98.9 F 70 18 119/70 97 01/04/19 23:45 98.3 F 79 18 147/78 97 01/04/19 20:00 18 01/04/19 19:45 98.3 F 70 18 142/74 96 01/04/19 17:54 98.1 F 68 20 148/78 96 Intake and Output 01/05/19 01/05/19 01/05/19 06:59 14:59 22:59 Intake Total 850 Balance 850 Intake: Intake, IV Titration 600 Amount Sodium Chloride 0.9% 1, 600 000 ml @ 100 mls/hr IV . Q10H STA Rx#:[id number] Oral 250 Other: Weight 65.5 kg On examination patient is an elderly female, in no distress. Her mental status, speech and language functions are normal. On cranial nerve examination, pupils are round and reacting, visual peters are full, face is symmetric and tongue protrudes the midline. Palatal elevation and sensation normal. On muscle strength testing there is no drift and the strength is normal reflexes are symmetric and plantars downgoing. No ataxia, sensory to touch is equal. Tone and bulk of muscles normal. Results Patient's total cholesterol is 180, LDL is 104, HDL is 37. Triglycerides were 95. AST is borderline 37 with normal ALT. Thyroid functions normal last year. - Laboratory Findings CBC and BMP: 01/04/19 13:36 01/04/19 13:36 Abnormal Lab Findings: Abnormal Labs 01/04/19 01/05/19 13:36 05:47 Chloride 109 H AST 37 H Triglycerides 195 H LDL Cholesterol, Calc 104 H HDL Cholesterol 37 L Assessment and Plan Assessment: * Possible TIA versus acephalgic migraine. * Long-standing history of migraines with aura. 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 * Dyslipidemia. Plan: * Continue aspirin 325 mg daily. Patient states that she has previously been intolerant to Plavix and Aggrenox and does not want to switch at this time. * She was recommended to start Lipitor 20 mg to target LDL <70, for vascular stenoses seen on the CTA of head and neck, but she wants to discuss with her primary physician about it. She tries herbal medications to lower her cholesterol. * We discussed about medications to be tried for migraine prophylaxis, as this episode could be an atypical migraine versus ?TIA. Patient was recommended to keep a log of her headaches on the calendar. If these migraines are occurring very frequently, then she should follow up with a neurologist locally to consider about treatment for migraine prophylaxis. Patient at this time does not want to try any prophylactic medication for migraines. * She is clear for discharge from neurology point.
[2019-01-05 18:14] VITALS: BP 160/83; PULSE 68
== END 2019-01-05 17:28 | disposition home or self-care (01) | DRG 69 ==
LOC: EC 12:17 → 3SCARD 16:45
PROVIDERS: ADMIT Internal Medicine; ATTEND Internal Medicine
DX: G45.9 Transient cerebral ischemic attack, unspecified (principal); I66.22 Occlusion and stenosis of left posterior cerebral artery; E78.5 Hyperlipidemia, unspecified; G43.109 Migraine with aura, not intractable, without status migrainosus; Z79.82 Long term (current) use of aspirin; Z79.890 Hormone replacement therapy; Z79.899 Other long term (current) drug therapy; Z86.73 Personal history of transient ischemic attack (TIA), and cerebral infarction without residual deficits; Z88.1 Allergy status to other antibiotic agents; Z88.0 Allergy status to penicillin
CPT/HCPCS: 36415; 70450; 70496; 70498; 70551; 71046; 80053; 80061; 84484; 85025; 85610; 85730; 93005; 93306; 96361; 96374; 96376; 99285

== ENCOUNTER 2020-05-21 11:41 | Emergency (ER) | payer MEDICARE ==
[2020-05-21 11:50] VITALS: TEMP 98.2
[2020-05-21] MEDS ORDERED: ONDANSETRON 4 MG/2 ML VIAL IVP STA (12:02)
--- NOTE | 2020-05-21 12:02 | ED ---
Female Urogenital HPI - General Source: patient Mode of arrival: ambulatory Limitations: no limitations <Rios Ugarte - Last Filed: 05/21/20 14:21> <Polo Jacob - Last Filed: 05/21/20 18:37> - General Chief complaint: Urogenital Stated complaint: ABD PAIN Time Seen by Provider: 05/21/20 11:52 - History of Present Illness Initial comments: Patient is 74-year-old female with history of diverticulitis presenting to the emergency department with chief complaint of abdominal pain. Patient states about 1 month ago she was diagnosed with a urinary tract infection and was started on antibiotics. Patient reports upon finishing the medication, she developed lower abdominal pain. Patient reports it is mostly located in the left lower quadrant with occasional radiation across the abdomen. States this does feel like diverticulitis. Does report a low-grade fever several days ago but nothing since then. Reports the abdominal pain seems to be alleviated after having a bowel movement. Does report increased urgency or frequency over the last several months but denies any dysuria. Denies hematuria, hematochezia or melena. Does report nausea but no vomiting. No chest pain back pain or shortness of breath. (Rios Ugarte) - Related Data Home Medications Medication Instructions Recorded Confirmed Levothyroxine Sodium [Synthroid] 88 mcg PO DAILY 01/04/19 05/21/20 Aspirin 325 mg PO HS 05/21/20 05/21/20 Allergies Allergy/AdvReac Type Severity Reaction Status Date / Time amoxicillin Allergy Swelling Verified 05/21/20 14:02 ampicillin Allergy Swelling Verified 05/21/20 14:02 cephalexin monohydrate Allergy Rash/Hives Verified 05/21/20 14:02 [From Keflex] ciprofloxacin [From Cipro] Allergy Swelling Verified 05/21/20 14:02 metronidazole [From Flagyl] Allergy Unknown Verified 05/21/20 14:02 Review of Systems ROS Other: All systems not noted in ROS Statement are negative. <Rios Ugarte - Last Filed: 05/21/20 14:21> ROS Other: All systems not noted in ROS Statement are negative. <Polo Jacob - Last Filed: 05/21/20 18:37> ROS Statement: Those systems with pertinent positive or pertinent negative responses have been documented in the HPI. 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, DIVERTICULITSIS, HEMORROIDS History of Any Multi-Drug Resistant Organisms: None Reported Additional Past Surgical History / Comment(s): colonoscopy, D &C's Past Anesthesia/Blood Transfusion Reactions: Motion Sickness Past Psychological History: No Psychological Hx Reported Smoking Status: Never smoker Past Alcohol Use History: Rare Past Drug Use History: None Reported - Past Family History Father Family Medical History: Cancer <Rios Ugarte - Last Filed: 05/21/20 14:21> General Exam Limitations: no limitations General appearance: alert, in no apparent distress Head exam: Present: atraumatic, normocephalic, normal inspection Eye exam: Present: normal appearance, PERRL, EOMI Pupils: Present: normal accommodation ENT exam: Present: normal exam, normal oropharynx, mucous membranes moist Neck exam: Present: normal inspection, full ROM. Absent: tenderness Respiratory exam: Present: normal lung sounds bilaterally. Absent: respiratory distress, wheezes, rales Cardiovascular Exam: Present: regular rate, normal rhythm, normal heart sounds GI/Abdominal exam: Present: soft, tenderness (Left lower quadrant), normal bowel sounds. Absent: distended, guarding, rebound, rigid Extremities exam: Present: normal inspection, full ROM, normal capillary refill, other (+2 ulnar and radial pulses bilaterally.). Absent: tenderness Back exam: Present: normal inspection, full ROM. Absent: tenderness, CVA tenderness (R), CVA tenderness (L) Neurological exam: Present: alert, oriented X3, normal gait Psychiatric exam: Present: normal affect, normal mood Skin exam: Present: warm, dry, intact, normal color <Rios Ugarte - Last Filed: 05/21/20 14:21> Course Vital Signs 05/21/20 05/21/20 11:42 14:40 Temperature 98.2 F Pulse Rate 96 86 Respiratory 18 16 Rate Blood Pressure 153/83 132/79 O2 Sat by Pulse 100 99 Oximetry Medical Decision Making - Lab Data Result diagrams: 05/21/20 12:22 05/21/20 12:22 <Rios Ugarte - Last Filed: 05/21/20 14:21> - Lab Data Result diagrams: 05/21/20 12:22 05/21/20 12:22 <Polo Jacob - Last Filed: 05/21/20 18:37> - Medical Decision Making Patient is a 74-year-old female with a diverticulitis presenting to emergency Department with a chief complaint abdominal pain. On physical examination, patient does have left lower quadrant abdominal pain. She also complain of some urinary symptoms. CBC CMP and UA are unremarkable. CT of abdomen and pelvis reveals no signs of diverticulitis but it is evident for small bowel enteritis. Patient was given IV fluids and antiemetics. On reevaluation, patient reports improvement in symptoms. Patient was advised to follow with the primary care physician. Strict return parameters were thoroughly discussed the patient was understanding in real. Case discussed with physician. (Rios Ugarte) 74-year-old female presenting with abdominal pain. Patient was personally examined, evaluated in conjunction with the physician assistant counsel. Patient well-a ppearing minimal abdominal tenderness. Stable vitals. Normal labs and CT showing enteritis with no other acute findings. Patient's symptoms have been ongoing for several weeks. She will follow with her primary care physician. (Polo Jacob) - Lab Data Lab Results 05/21/20 05/21/20 05/21/20 Range/Units 12:22 12:22 12:22 WBC 5.4 (3.8-10.6) k/uL RBC 4.60 (3.80-5.40) m/uL Hgb 14.2 (11.4-16.0) gm/dL Hct 43.5 (34.0-46.0) % MCV 94.4 (80.0-100.0) fL MCH 30.9 (25.0-35.0) pg MCHC 32.7 (31.0-37.0) g/dL RDW 12.5 (11.5-15.5) % Plt Count 243 (150-450) k/uL Neutrophils % 60 % Lymphocytes % 29 % Monocytes % 6 % Eosinophils % 2 % Basophils % 1 % Neutrophils # 3.2 (1.3-7.7) k/uL Lymphocytes # 1.5 (1.0-4.8) k/uL Monocytes # 0.3 (0-1.0) k/uL Eosinophils # 0.1 (0-0.7) k/uL Basophils # 0.0 (0-0.2) k/uL Sodium 140 (137-145) mmol/L Potassium 4.1 (3.5-5.1) mmol/L Chloride 109 H (98-107) mmol/L Carbon Dioxide 24 (22-30) mmol/L Anion Gap 7 mmol/L BUN 17 (7-17) mg/dL Creatinine 0.83 (0.52-1.04) mg/dL Est GFR (CKD-EPI)AfAm 80 (>60 ml/min/1.73 sqM) Est GFR (CKD-EPI)NonAf 69 (>60 ml/min/1.73 sqM) Glucose 88 (74-99) mg/dL Plasma Lactic Acid Waqar (0.7-2.0) mmol/L Calcium 9.6 (8.4-10.2) mg/dL Total Bilirubin 0.4 (0.2-1.3) mg/dL AST 30 (14-36) U/L ALT 19 (4-34) U/L Alkaline Phosphatase 68 (38-126) U/L Total Protein 8.1 (6.3-8.2) g/dL Albumin 4.5 (3.5-5.0) g/dL Lipase 190 (23-300) U/L Urine Color Colorless Urine Appearance Clear (Clear) Urine pH 6.5 (5.0-8.0) Ur Specific [place] 1.004 (1.001-1.035) Urine Protein Negative (Negative) Urine Glucose (UA) Negative (Negative) Urine Ketones Negative (Negative) Urine Blood Negative (Negative) Urine Nitrite Negative (Negative) Urine Bilirubin Negative (Negative) Urine Urobilinogen <2.0 (<2.0) mg/dL Ur Leukocyte Esterase Negative (Negative) 05/21/20 Range/Units 12:22 WBC (3.8-10.6) k/uL RBC (3.80-5.40) m/uL Hgb (11.4-16.0) gm/dL Hct (34.0-46.0) % MCV (80.0-100.0) fL MCH (25.0-35.0) pg MCHC (31.0-37.0) g/dL RDW (11.5-15.5) % Plt Count (150-450) k/uL Neutrophils % % Lymphocytes % % Monocytes % % Eosinophils % % Basophils % % Neutrophils # (1.3-7.7) k/uL Lymphocytes # (1.0-4.8) k/uL Monocytes # (0-1.0) k/uL Eosinophils # (0-0.7) k/uL Basophils # (0-0.2) k/uL Sodium (137-145) mmol/L Potassium (3.5-5.1) mmol/L Chloride (98-107) mmol/L Carbon Dioxide (22-30) mmol/L Anion Gap mmol/L BUN (7-17) mg/dL Creatinine (0.52-1.04) mg/dL Est GFR (CKD-EPI)AfAm (>60 ml/min/1.73 sqM) Est GFR (CKD-EPI)NonAf (>60 ml/min/1.73 sqM) Glucose (74-99) mg/dL Plasma Lactic Acid Waqar 1.4 (0.7-2.0) mmol/L Calcium (8.4-10.2) mg/dL Total Bilirubin (0.2-1.3) mg/dL AST (14-36) U/L ALT (4-34) U/L Alkaline Phosphatase (38-126) U/L Total Protein (6.3-8.2) g/dL Albumin (3.5-5.0) g/dL Lipase (23-300) U/L Urine Color Urine Appearance (Clear) Urine pH (5.0-8.0) Ur Specific [place] (1.001-1.035) Urine Protein (Negative) Urine Glucose (UA) (Negative) Urine Ketones (Negative) Urine Blood (Negative) Urine Nitrite (Negative) Urine Bilirubin (Negative) Urine Urobilinogen (<2.0) mg/dL Ur Leukocyte Esterase (Negative) Disposition Is patient prescribed a controlled substance at d/c from ED?: No Time of Disposition: 14:22 <Rios Ugarte - Last Filed: 05/21/20 14:21> <Polo Jacob - Last Filed: 05/21/20 18:37> Clinical Impression: Abdominal pain, Enteritis Disposition: HOME SELF-CARE Condition: Stable Instructions (If sedation given, give patient instructions): Abdominal Pain (ED), Enteritis (ED) Additional Instructions: Follow-up with the primary care physician. Return to emergency department if symptoms worsen. Referrals: Geena Wen MD [Primary Care Provider] - 1-2 days
[2020-05-21] MEDS ORDERED: SODIUM CHLORIDE 0.9% 1,000 ML IV STA (12:03)
[2020-05-21 12:52] LABS: Albumin 4.5 g/dL (3.5-5.0); Calcium 9.6 mg/dL (8.4-10.2); Potassium 4.1 mmol/L (3.5-5.1); Total Bilirubin 0.4 mg/dL (0.2-1.3); Total Protein 8.1 g/dL (6.3-8.2)
[2020-05-21 12:56] LABS: Basophils % (A) 1 %; Eosinophils # (A) 0.1 k/uL (0-0.7); Eosinophils % (A) 2 %; HCT 43.5 % (34.0-46.0); HGB 14.2 gm/dL (11.4-16.0); Lymphocytes # (A) 1.5 k/uL (1.0-4.8); Lymphocytes % (A) 29 %; MCH 30.9 pg (25.0-35.0); MCHC 32.7 g/dL (31.0-37.0); MCV 94.4 fL (80.0-100.0); Mean Platelet Volume 7.2; Monocytes # (A) 0.3 k/uL (0-1.0); Monocytes % (A) 6 %; Neutrophils # (A) 3.2 k/uL (1.3-7.7); Neutrophils % (A) 60 %; Platelet Count 243 k/uL (150-450); RDW 12.5 % (11.5-15.5); WBC 5.4 k/uL (3.8-10.6)
[2020-05-21 13:00] LABS: Appearance,Urine Clear (Clear); Bilirubin,Urine Negative (Negative); Blood,Urine Negative (Negative); Color,Urine Colorless; Glucose,Urine (UA) Negative (Negative); Ketones,Urine Negative (Negative); Leukocyte Esterase,Urine Negative (Negative); Nitrite,Urine Negative (Negative); PH, Urine 6.5 (5.0-8.0); Protein,Urine Negative (Negative); Specific Gravity,Urine 1.004 (1.001-1.035); Urobilinogen,Urine <2.0 mg/dL (<2.0)
--- NOTE | 2020-05-21 13:50 | CT ---
EXAMINATION TYPE: CT abdomen pelvis w con DATE OF EXAM: 05/21/2020 COMPARISON: 05/06/2015 HISTORY: Lower abdominal pain and pressure. History of diverticulitis. CT DLP: 816.7 mGycm CONTRAST: CT scan of the abdomen and pelvis is performed without Oral Contrast and with IV Contrast, patient in jected with 100 mL of Isovue 300. FINDINGS: LUNG BASES-: No visible nodule. No infiltrate. LIVER/GB: No calcified gallstones. No space occupying hepatic lesion. Biliary tree is of normal ca liber. PANCREAS: No inflammation. No distinct mass. SPLEEN: No splenic enlargement. No lesion seen. ADRENALS: No nodule. No thickening. KIDNEYS/BLADDER: No hydronephrosis. No nephrolithiasis. No distinct renal mass. Urinary bladder g rossly unremarkable. BOWEL: There is nonvisualization of the appendix. Sigmoid diverticulosis without diverticulitis. Ther e are few mildly distended loops of small bowel within the left hemiabdomen with wall thickening may reflect enteritis. Correlate clinically. GENITAL ORGANS: No gross abnormality. LYMPH NODES: No greater than 1cm abdominal or pelvic lymph nodes are appreciated. AORTA: No significant abnormality. OSSEOUS STRUCTURES: No significant abnormality is seen. OTHER: No significant additional abnormality is seen. IMPRESSION: 1. Correlate for small bowel enteritis. 2. Sigmoid diverticulosis without diverticulitis.
[2020-05-21 14:41] VITALS: BP 132/79; PULSE 86; RESP 16
== END 2020-05-21 14:41 | disposition home or self-care (01) ==
LOC: EC 11:41
DX: K57.30 Diverticulosis of large intestine without perforation or abscess without bleeding (principal); K52.9 Noninfective gastroenteritis and colitis, unspecified; Z88.0 Allergy status to penicillin; Z88.1 Allergy status to other antibiotic agents; Z86.73 Personal history of transient ischemic attack (TIA), and cerebral infarction without residual deficits; Z87.19 Personal history of other diseases of the digestive system; Z98.890 Other specified postprocedural states
CPT/HCPCS: 36415; 80053; 83605; 83690; 85025; 81003; 87040; 74177; 96374; 96361; 99284; J2405; Q9967

== ENCOUNTER → 2021-11-24 | Outpatient (CLI) | payer MEDICARE ==
--- NOTE | 2021-11-24 12:44 | BD ---
EXAMINATION TYPE: Axial Bone Density DATE OF EXAM: 11/24/2021 COMPARISON: NONE CLINICAL HISTORY: 76 years year old Female. ICD-10 CODE: N95.8 Other specified menopausal and perime nopausal disorder Height: 66 Weight: 146.0 FRAX RISK QUESTIONS: Alcohol (3 or more units per day): NO Family History (Parent hip fracture): yes Glucocorticoids (More than 3mos): no (Ex: prednisone, prednisolone, methylprednisolone, dexamethasone, and hydrocortisone). History of Fracture in Adulthood: yes Secondary Osteoporosis: 1. Type 1 Diabetes: no 2. Hyperthyroidism: no 3. Menopause before 45: no 4. Malnutrition: no 5. Chronic liver disease: no Rheumatoid Arthritis: no Current Tobacco Use: no RISK FACTORS HISTORY OF: Surgery to Spine/Hip(right/left)/Wrist (right/left): no Family History of Osteoporosis: yes Active: yes Diet low in dairy products/other sources of calcium: no Postmenopausal woman: yes Lost more than 2 inches in height since high school: no MEDICATIONS: Thyroid Medications: levothyroxine How Long: since 1978 Additional History: EXAM MEASUREMENTS: Bone mineral densitometry was performed using the [employer] System. Bone mineral density as measured about the Lumbar spine is: ----- L1-L4(G/cm2): 1.268 T Score Values are as follows: ----- L1: -0.5 ----- L2: 0.0 ----- L3: 1.3 ----- L4: 1.6 ----- L1-L4: 0.7 Bone mineral density has: increased 4.3 % since study of: 12.21.2017 Bone mineral density about the R hip (g/cm2): 0.850 Bone mineral density about the L hip (g/cm2): 0.715 T Score values are as follows: -----R Neck: -1.4 -----L Neck: -2.3 -----R Total: -0.8 -----L Total: -0.7 Bone mineral density has: decreased -5.4 % since study of: 12.21.2017 FRAX%s: The graph provided illustrates a 42.0% chance for a major osteoporotic fx and a 28.2% chance for the hips probability for fx in 10 years time. IMPRESSION: Osteopenia (T Score between -2.5 and -1). There is slightly increased risk of fracture and the patient may be considered for treatment. Re-Screen 2-5 years. NOTE: T-SCORE=SD OF THE YOUNG ADULT MEAN.
--- NOTE | 2021-11-25 12:51 | MM ---
Reason for exam: screening (asymptomatic). Last mammogram was performed 18 years and 7 months ago. History: Patient is postmenopausal. Physical Findings: A clinical breast exam by your physician is recommended on an annual basis and results should be correlated with mammographic findings. MG 3D Screening Mammo W/Cad Bilateral CC and MLO view(s) were taken. No prior studies available for comparison. Finding: There are grouped/clustered calcifications in the 12 o'clock middle position of the left breast. ASSESSMENT: Incomplete: need additional imaging evaluation, BI-RAD 0 RECOMMENDATION: Special view mammogram of the left breast. [facility] will attempt to contact patient to return for supplemental views.
== END | disposition home or self-care (01) ==
LOC: RADBDWWP 09:25
PROVIDERS: ATTEND Internal Medicine
DX: M85.89 Other specified disorders of bone density and structure, multiple sites (principal)
CPT/HCPCS: 77063; 77067; 77080

== ENCOUNTER → 2021-12-08 | Outpatient (CLI) | payer MEDICARE ==
--- NOTE | 2021-12-09 08:02 | MM ---
Reason for exam: additional evaluation requested from abnormal screening. Last mammogram was performed less than 1 month ago. History: Patient is postmenopausal. Physical Findings: A clinical breast exam by your physician is recommended on an annual basis and results should be correlated with mammographic findings. MG 3D Work Up W/Cad LT CC with magnification, LM with magnification, and LM view(s) were taken of the left breast. Prior study comparison: November 24, 2021, bilateral MG 3d screening mammo w/cad. April 29, 2003, bilateral screening mammogram. There are scattered fibroglandular densities. There are benign appearing round and linear calcifications in the left breast. No persistent suspicious group of microcalcifications in the left breast. Results were given to the patient verbally at the time of the exam. ASSESSMENT: Probably benign, BI-RAD 3 RECOMMENDATION: Follow-up diagnostic mammogram of the left breast in 6 months.
== END | disposition home or self-care (01) ==
LOC: RADMAMWWP 14:39
PROVIDERS: ATTEND Internal Medicine
DX: R92.1 Mammographic calcification found on diagnostic imaging of breast (principal); Z78.0 Asymptomatic menopausal state
CPT/HCPCS: 77065; G0279; 77061

== ENCOUNTER 2023-12-01 12:33 | Emergency (ER) | payer MEDICARE ==
[2023-12-01 13:13] VITALS: RESP 18
--- NOTE | 2023-12-01 13:21 | ED ---
Back Pain HPI - General Chief Complaint: Back Pain/Injury Stated Complaint: Fall-Back injury Time Seen by Provider: 12/01/23 12:45 Source: patient, RN notes reviewed, old records reviewed Limitations: no limitations - History of Present Illness Initial Comments: This is a 78-year-old female to the ER for evaluation of severe back pain after a fall. Patient had a trip and fall over croquet set while she was setting up 2 days ago. Pain has been increased MD Complaint: back pain, back injury -: hour(s) Similar Symptoms Previously: No Place: home Radiation: none Severity: moderate Severity scale (1-10): 5 Quality: burning, sharp, dull Consistency: constant Improves With: none Worsens With: none Context: while lifting, turning/twisting, fall Associated Symptoms: denies other symptoms Treatments Prior to Arrival: other (0) - Related Data Home Medications Medication Instructions Recorded Confirmed Aspirin 325 mg PO DAILY@1400 05/21/20 12/01/23 Levothyroxine Sodium [Synthroid] 100 mcg PO DAILY 12/01/23 12/01/23 Allergies Allergy/AdvReac Type Severity Reaction Status Date / Time amoxicillin Allergy Swelling Verified 12/01/23 13:42 ampicillin Allergy Swelling Verified 12/01/23 13:42 cephalexin monohydrate Allergy Rash/Hives Verified 12/01/23 13:42 [From Keflex] ciprofloxacin [From Cipro] Allergy Swelling Verified 12/01/23 13:42 metronidazole [From Flagyl] Allergy Unknown Verified 12/01/23 13:42 Review of Systems ROS Statement: Those systems with pertinent positive or pertinent negative responses have been documented in the HPI. ROS Other: All systems not noted in ROS Statement are negative. 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, DIVERTICULITSIS, HEMORROIDS History of Any Multi-Drug Resistant Organisms: None Reported Additional Past Surgical History / Comment(s): colonoscopy, D &C's Past Anesthesia/Blood Transfusion Reactions: Motion Sickness Past Psychological History: No Psychological Hx Reported Smoking Status: Never smoker Past Alcohol Use History: Rare Past Drug Use History: None Reported - Past Family History Father Family Medical History: Cancer General Exam Limitations: no limitations General appearance: alert, in no apparent distress Head exam: Present: atraumatic, normocephalic, normal inspection Eye exam: Present: normal appearance, PERRL, EOMI. Absent: scleral icterus, conjunctival injection, periorbital swelling ENT exam: Present: normal exam, mucous membranes moist Neck exam: Present: normal inspection. Absent: tenderness, meningismus, lymphadenopathy Respiratory exam: Present: normal lung sounds bilaterally. Absent: respiratory distress, wheezes, rales, rhonchi, stridor Cardiovascular Exam: Present: regular rate, normal rhythm, normal heart sounds. Absent: systolic murmur, diastolic murmur, rubs, gallop, clicks GI/Abdominal exam: Present: soft, normal bowel sounds. Absent: distended, tenderness, guarding, rebound, rigid Extremities exam: Present: normal inspection, full ROM, normal capillary refill. Absent: tenderness, pedal edema, joint swelling, calf tenderness Back exam: Present: normal inspection Neurological exam: Present: alert, oriented X3, CN II-XII intact Psychiatric exam: Present: normal affect, normal mood Skin exam: Present: warm, dry, intact, normal color. Absent: rash Course Vital Signs 12/01/23 12/01/23 12:38 14:08 Temperature 97.7 F 98.1 F Pulse Rate 96 94 Respiratory 18 18 Rate Blood Pressure 149/72 136/78 O2 Sat by Pulse 100 99 Oximetry - Reevaluation(s) Reevaluation #1: 12/01/23 13:48 Medical records reviewed Reevaluation #2: 12/01/23 13:48 Patient symptoms improved Reevaluation #3: 12/01/23 13:48 Patient informed of results questions answered Reevaluation #4: Was pt. sent in by a medical professional or institution (, PA, MULTI SLIDE MACHINE TENDER, urgent care, hospital, or snf...) When possible be specific @ -no Did you speak to anyone other than the patient for history (EMS, parent, family, police, friend...)? What history was obtained from this source @ -no Did you review nursing and triage notes (agree or disagree)? Why? @ -agree Are old charts reviewed (outside hosp., previous admission, EMS record, old EKG, old radiological studies, urgent care reports/EKG's, snf records)? Report findings @ -yes Differential Diagnosis (chest pain, altered mental status, abdominal pain women, abdominal pain men, vaginal bleeding, weakness, fever, dyspnea, syncope, headache, dizziness, GI bleed, back pain, seizure, CVA, palpatations, mental health, musculoskeletal)? @ -prior EKG interpreted by me (3pts min.). @ -no X-rays interpreted by me (1pt min.). @ -yes negative for acute disease CT interpreted by me (1pt min.). @ -no U/S interpreted by me (1pt. min.). @ -no What testing was considered but not performed or refused? (CT, X-rays, U/S, labs)? Why? @ -none What meds were considered but not given or refused? Why? @ -none Did you discuss the management of the patient with other professionals (professionals i.e. , PA, MULTI SLIDE MACHINE TENDER, lab, RT, psych nurse, manager social responsibility, mixer and scaler, teacher, transportation officer, telehealth case manager)? Give summary @ -no Was smoking cessation discussed for >3mins.? @ -no Was critical care preformed (if so, how long)? @ -no Were there social determinants of health that impacted care today? How? (Homelessness, low income, unemployed, alcoholism, drug addiction, transportation, low edu. Level, literacy, decrease access to med. care, custodial, rehab)? @ -none Was there de-escalation of care discussed even if they declined (Discuss DNR or withdrawal of care, Hospice)? DNR status @ -no What co-morbidities impacted this encounter? (DM, HTN, Smoking, COPD, CAD, Cancer, CVA, ARF, Chemo, Hep., AIDS, mental health diagnosis, sleep apnea, morbid obesity)? @ -none Was patient admitted / discharged? Hospital course, mention meds given and route, prescriptions, significant lab abnormalities, going to OR and other pertinent info. @ - 78 female after a fall. Patient had a fall landing on her back with significant back pain. Back pain is currently resolved. Patient is able to ambulate and was able to ambulate on arrival. Patient can be discharged home Discharge Undiagnosed new problem with uncertain prognosis? @ -no Drug Therapy requiring intensive monitoring for toxicity (Heparin, Nitro, Insulin, Cardizem)? @ -no Were any procedures done? @ -no Diagnosis/symptom? @ -Back pain Acute, or Chronic, or Acute on Chronic? @ -Acute Uncomplicated (without systemic symptoms) or Complicated (systemic symptoms)? @ -Complicated Side effects of treatment? @ -no Exacerbation, Progression, or Severe Exacerbation? @ -exacerbation Poses a threat to life or bodily function? How? (Chest pain, [place], [place], pneumonia, PE, COPD, DKA, ARF, appy, cholecystitis, CVA, Diverticulitis, Homicidal, Suicidal, threat to staff... and all critical care pts) @ -yes negative for acute disease Reevaluation #5: Differential Back Pain: Strain, zoster, cauda equina syndrome, epidural abscess, vertebral osteomyelitis, discitis, fracture, subluxation, disc herniation, DJD, spinal stenosis, dissection, AAA, pancreatitis, peptic ulcer disease, pyelonephritis, kidney stone, this is not meant to be an all-inclusive list. Medical Decision Making - Medical Decision Making 78 female after a fall. Patient had a fall landing on her back with significant back pain. Back pain is currently resolved. Patient is able to ambulate and was able to ambulate on arrival. Patient can be discharged home - Radiology Data Radiology results: report reviewed (X-ray LS spine is negative for acute disease), image reviewed Disposition Clinical Impression: Mid back pain, Mechanical back pain, Fall Disposition: HOME SELF-CARE Condition: Good Instructions (If sedation given, give patient instructions): Acute Low Back Pain (ED) Is patient prescribed a controlled substance at d/c from ED?: No Referrals: Geena Wen MD [Primary Care Provider] - 1-2 days Time of Disposition: 13:45
--- NOTE | 2023-12-01 13:37 | XR ---
EXAMINATION TYPE: XR lumbar spine 2 or 3V DATE OF EXAM: 12/01/2023 CLINICAL HISTORY: pain TECHNIQUE: Three views of the lumbar spine are submitted. COMPARISON: None. FINDINGS: There are 5 lumbar type vertebral bodies identified. The lumbar spine shows satisfactory alignment w ithout evidence of acute fracture or dislocation. Vertebral body heights are within normal limits. Severe disc desiccation L4-5 and L5-S1 as well as severe facet joint arthropathy and neural foraminal encroachment at this level. The overlying soft tissue appears unremarkable. IMPRESSION: No acute fracture or dislocation is seen in the lumbar spine. ICD 10 NO FRACTURE, INITIAL EVALUATION
[2023-12-01] MEDS: traMADol 50 MG STARTER PACK 3 TAB BTL PO STA (14:00)
[2023-12-01] MEDS: KETOROLAC 15 MG/ML 1 ML VIAL IM STA (14:01)
[2023-12-01] MEDS: traMADol 50 MG TAB PO STA (14:03)
[2023-12-01] MEDS: IBUPROFEN 600 MG STARTER PACK 4 TAB BTL PO STA (14:03)
[2023-12-01 14:43] VITALS: BP 136/78; PULSE 94; TEMP 98.1
== END 2023-12-01 13:49 | disposition home or self-care (01) ==
LOC: EC 12:33
DX: M54.9 Dorsalgia, unspecified (principal); Z88.0 Allergy status to penicillin; Z88.1 Allergy status to other antibiotic agents; Z88.8 Allergy status to other drugs, medicaments and biological substances; W01.0XXA Fall on same level from slipping, tripping and stumbling without subsequent striking against object, initial encounter; Y92.009 Unspecified place in unspecified non-institutional (private) residence as the place of occurrence of the external cause
CPT/HCPCS: 99283 ×2; 96372 ×2; 72100; J1885

== ENCOUNTER → 2024-10-30 | Outpatient (CLI) | payer MEDICARE ==
--- NOTE | 2024-10-30 13:25 | MM ---
Reason for Exam: Screening (asymptomatic). Last mammogram was performed 2 year(s) and 11 month(s) ago. Patient History: Menarche at age 13. First Full-Term at age 17. Postmenopausal. Niece had breast cancer, age 45. Risk Values: Leonor 5 year model risk: 1.1%. NCI Lifetime model risk: 1.5%. Prior Study Comparison: 04/29/2003 Bilateral Screening Mammogram, [facility]. 11/24/2021 Bilateral Screening Mammogram, [facility]. 12/08/2021 Left Diagnostic Mammogram, [facility]. Tissue Density: There are scattered areas of fibroglandular density. Findings: Analyzed By CAD. There are a couple small grouped calcifications in the central upper and central lower margin left breast for which spot magnification views recommended. No dominant mass. No architectural distortion. Additional benign-appearing calcifications. Overall Assessment: Incomplete: need additional imaging evaluation, BI-RAD 0 Management: Special View Mammogram of the left breast. . Patient should continue monthly self-breast exams. A clinical breast exam by your physician is recommended on an annual basis. This exam should not preclude additional follow-up of suspicious palpable abnormalities. Note on Leonor scores and lifetime risk: 1. A Leonor score greater than 3% is considered moderate risk. If this is the case, consider specialist referral to assess eligibility for a risk reducing agent. 2. If overall lifetime risk for the development of breast cancer is 20% or higher, the patient may qualify for future screening with alternating mammogram and breast MRI. [facility], , 10/30/2024 1:22 PM. Electronically signed and approved by: Curtis Carrillo M.D. Radiologis
--- NOTE | 2024-10-30 14:12 | BD ---
EXAMINATION TYPE: Axial Bone Density DATE OF EXAM: 10/30/2024 CLINICAL HISTORY: 79 years old Female. ICD-10 CODE: N95.8 MENOPAUSAL AND PERIMENOPAUSAL DISORDER , Additional History: Height: 64 Weight: 147 FRAX RISK QUESTIONS: Family History (Parent hip fracture): yes, mother History of Fracture in Adulthood: yes 3. Menopause before 45: no at 48 RISK FACTORS HISTORY OF: hx of lt hand fracture as an adult MEDICATIONS: aspirin daily, hx of strokes Thyroid Medications: yes, synthroid 20 plus yrs EXAM MEASUREMENTS: Bone mineral densitometry was performed using the [employer] System. Bone mineral density as measured about the Lumbar spine is: ----- L1-L4(G/cm2): 1.180 T Score Values are as follows: ----- L1: -0.3 ----- L2: -1.9 ----- L3: 0.5 ----- L4: 1.3 ----- L1-L4: 0.0 Z Score Values are as follows: ----- L1: 1.5 ----- L2: -0.1 ----- L3: 2.3 ----- L4: 3.1 ----- L1-L4: 1.8 Bone mineral density has: Decreased -6.9% since study of: 11.24.2021 Bone mineral density about the R hip (g/cm2): 0.876 Bone mineral density about the L hip (g/cm2): 0.952 T Score values are as follows: -----R Neck: -1.8 -----L Neck: -2.2 -----R Total: -1.0 -----L Total: -0.4 Z Score values are as follows: -----R Neck: 0.4 -----L Neck: -2.2 -----R Total: 1.0 -----L Total: 1.6 Bone mineral density has: Increased 0.2% since study of: 11.24.2021 IMPRESSION: Osteopenia (T Score between -2.5 and -1). There is slightly increased risk of fracture and the patient may be considered for treatment. Re-Screen 2-5 years. NOTE: T-SCORE=SD OF THE YOUNG ADULT MEAN. [facility], , 10/30/2024 2:10 PM
--- NOTE | 2024-10-30 14:18 | US ---
EXAMINATION TYPE: US carotid duplex BILAT DATE OF EXAM: 10/30/2024 COMPARISON: 05/08/2016 CLINICAL INDICATION: Female, 79 years old with history of [id number] CVA; Multiple strokes most recent 7 months ago. Hx HTN; Patient denies any other signs, symptoms, or relevant history Additional History: .... TECHNIQUE: Grayscale, color Doppler and spectral Doppler evaluation of the bilateral carotid systems and vertebral arteries. Indirect Doppler criteria was utilized. FINDINGS: EXAM MEASUREMENTS: RIGHT: Peak Systolic Velocity (PSV) cm/sec ----- Right CCA: 55 ----- Right ICA: 159 ----- Right ECA: 157 ICA/CCA ratio: 2.9 RIGHT: End Diastole cm/sec ----- Right CCA: 15 ----- Right ICA: 49 ----- Right ECA: 13 LEFT: Peak Systolic Velocity (PSV) cm/sec ----- Left CCA: 90 ----- Left ICA: 138 ----- Left ECA: 53 ICA/CCA ratio: 1.5 LEFT: End Diastole cm/sec ----- Left CCA: 17 ----- Left ICA: 35 ----- Left ECA: 0 VERTEBRALS (direction of flow): Right Vertebral: Antegrade Left Vertebral: Antegrade Rhythm: Normal PROPERTY CARETAKER NOTES: No intimal thickening or carotid plaque seen. Elevated velocities within the right ICA and ECA and left ICA. Color Doppler imaging shows patency with blood flow throughout the carotid artery. Spectral waveforms are within normal limits. IMPRESSION: Cannot exclude significant stenosis greater than 50% in the right internal carotid artery . Advise further evaluation with CTA of the neck. Criteria for Assigning % of Stenosis / Diameter reduction (Estimation based on the indirect measurements of the internal carotid artery velocities (ICA PSV). 1. Normal (no stenosis)=ICA PSV < 125 cm/s: ratio < 2.0: ICA EDV<40 cm/s. 2. Less than 50% stenosis=ICA PSV < 125 cm/s: ratio < 2.0: ICA EDV<40 cm/s. 3. 50 to 69% stenosis=ICA PSV of 125 to 230 cm/s: ration 2.0 ? 4.0: ICA EDV 40-100 cm/s. 4. Greater than 70% stenosis to near occlusion= ICA PSV > 230 cm/s: ratio > 4.0: ICA EDV > 100 cm/s. 5. Near occlusion= ICA PSV velocities may be low or undetectable: variable ratio and ICA EDV. 6. Total occlusion=unable to detect flow. [facility], , 10/30/2024 2:15 PM
== END | disposition home or self-care (01) ==
LOC: RADMAMWWP 12:36
PROVIDERS: ATTEND Internal Medicine
DX: Z12.31 Encounter for screening mammogram for malignant neoplasm of breast (principal); R92.323 Mammographic fibroglandular density, bilateral breasts; M85.89 Other specified disorders of bone density and structure, multiple sites; Z78.0 Asymptomatic menopausal state; I69.328 Other speech and language deficits following cerebral infarction; I65.23 Occlusion and stenosis of bilateral carotid arteries
CPT/HCPCS: 77063; 77067; 77080; 93880

== ENCOUNTER → 2024-11-07 | Outpatient (CLI) | payer MEDICARE ==
--- NOTE | 2024-11-07 15:28 | MM ---
Reason for Exam: Additional evaluation requested from abnormal screening. Last screening mammogram was performed less than 1 month ago. Patient History: Menarche at age 13. First Full-Term at age 17. Postmenopausal. Niece had breast cancer, age 45. Risk Values: Leonor 5 year model risk: 1.1%. NCI Lifetime model risk: 1.5%. Prior Study Comparison: 11/24/2021 Bilateral Screening Mammogram, [facility]. 12/08/2021 Left Diagnostic Mammogram, [facility]. 10/30/2024 Bilateral MG 3D screening mammo w/cad, [facility]. Tissue Density: Left: There are scattered areas of fibroglandular density. Findings: Analyzed By CAD. Noted are scattered punctate and loosely grouped calcifications none of which appear suspicious at this time. Continued follow-up however is recommended in 6 months with spot magnification compression views. Overall Assessment: Probably benign, BI-RAD 3 Management: Diagnostic Mammogram of the left breast in 6 months. . Results were given to the patient verbally at the time of exam. Patient should continue monthly self-breast exams. A clinical breast exam by your physician is recommended on an annual basis. This exam should not preclude additional follow-up of suspicious palpable abnormalities. Note on Leonor scores and lifetime risk: 1. A Leonor score greater than 3% is considered moderate risk. If this is the case, consider specialist referral to assess eligibility for a risk reducing agent. 2. If overall lifetime risk for the development of breast cancer is 20% or higher, the patient may qualify for future screening with alternating mammogram and breast MRI. [facility], , 11/07/2024 3:20 PM. Electronically signed and approved by: Reggie Newell M.D. Radiologis
== END | disposition home or self-care (01) ==
LOC: RADMAMWWP 14:57
PROVIDERS: ATTEND Internal Medicine
DX: R92.8 Other abnormal and inconclusive findings on diagnostic imaging of breast (principal); R92.333 Mammographic heterogeneous density, bilateral breasts; Z78.0 Asymptomatic menopausal state; Z80.3 Family history of malignant neoplasm of breast
CPT/HCPCS: 77061; 77065